=== PATIENT | male | born 1975 | race Caucasian/White ===

== ENCOUNTER → 2017-06-23 | Outpatient (CLI) | payer OTHER ==
--- NOTE | 2017-06-24 10:26 | XCELERA REPORT ---
[address] [address] Lower Extremity Venous Evaluation Name: EZEQUIEL SMILEY Age: 41 yrs Gender: Male : 1975 Patient Status: Outpatient Patient Location: Study Date: 06/23/2017 12:46 PM Procedure: Color flow and duplex imaging bilaterally of the veins of the lower extremities as well as the Common Femoral veins. Reason For Study: EDEMA Ordering Physician: SARAI LOBATO Performed By: Leticia Galloway Right Sided Venous Evaluation Normal vessel filling wall to wall, compression and augmentation as well as Colour flow down to the infrageniculate veins. Left Sided Venous Evaluation Normal vessel filling wall to wall, compression and augmentation as well as Colour flow down to the infrageniculate veins. Interpretation Summary No duplex evidence of DVT or obstruction in the bilateral lower extremities. : SARAI LOBATO [place]
== END ==
LOC: SP 12:01
PROVIDERS: ATTEND Internal Medicine Endocrinology, Diabetes & Metabolism
DX: R60.0 Localized edema (principal)
CPT/HCPCS: 93970

== ENCOUNTER → 2017-11-14 | Outpatient (CLI) | payer BC ==
--- NOTE | 2017-11-15 08:48 | RADIOLOGY REPORT (SQ) ---
EXAM DESCRIPTION: MRI RT LOWER EXTREMITY WITHOUT COMPLETED DATE/TIME: 11/14/2017 5:32 pm REASON FOR STUDY: L03.116 CELLULITIS OF LEFT LOWER LIMB M14.671 CHARCOT'S JOINT, RIGHT ANKLE L97.412 NON-PRS CHR ULCER OF RIGHT HEEL AND MIDFT W FAT LAYE L03.116 CELLULITIS OF LEFT LOWER LIMB M14.671 CHARCOT'S JOINT, RIGHT ANKLE AND FOOT COMPARISON: None. TECHNIQUE: Proton density, T1 and gradient noncontrast multiplanar imaging of the right foot. LIMITATIONS: None. FINDINGS: There is disruption and disorganization of the midfoot, with a Lisfranc dislocation of the 2nd through 5th proximal metatarsals, collapse of the plantar arch, fragmentation and erosion of the cuneiform bones and cuboid bone. There is a large plantar ulcer at the level of the cuboid bone/5th tarsometatarsal joint, with the la teral cuneiform bone and cuboid bone bulging through the plantar fascia into the subcutaneous fat. There is diffusely abnormal marrow edema and marrow signal throughout the cuneiform bones and cuboid and bases of the metatarsals which could be due to Charcot foot/avascular necrosis or infection with osteomyelitis. Relatively preserved talus and calcaneus and distal tibia and fibula, without aggressive bony erosion s or abnormal marrow signal. Subtalar joint grossly intact. There is diffuse edema throughout the skin and subcutaneous tissues. Achilles, flexor hallucis, peroneal tendons intact. Posterior tibial tendons intact. Anterior tendo ns grossly intact. IMPRESSION: Charcot foot, with bony fragmentation, dislocation and disorganization at the tarsometat arsal articulations. Extensive skin and subcutaneous edema. TECHNICAL DOCUMENTATION: JOB ID: [id number] [employer]- All Rights Reserved
== END ==
LOC: RAD 16:09
PROVIDERS: ATTEND Podiatrist Foot Surgery
DX: L03.116 Cellulitis of left lower limb (principal); L97.412 Non-pressure chronic ulcer of right heel and midfoot with fat layer exposed; M14.671 Charcot's joint, right ankle and foot; E11.40 Type 2 diabetes mellitus with diabetic neuropathy, unspecified
CPT/HCPCS: 82565